=== PATIENT | female | born 1940 | race Caucasian/White ===

== ENCOUNTER 2017-04-10 14:17 | Emergency (ER) | payer MEDICARE, OTHER ==
[2017-04-10 14:56] VITALS: BP 107/63
--- NOTE | 2017-04-10 15:11 | UC ---
Throat Pain/Nasal Beau HPI - HPI Summary HPI Summary: Patient has had sore throat, MAGANA and nasal congestion for 2 weeks. - History of Current Complaint Chief Complaint: UCRespiratory Stated Complaint: SORE THROAT Time Seen by Provider: 04/10/17 14:52 Hx Obtained From: Patient ?: No Onset/Duration: Sudden Onset, Lasting Days Severity: Moderate Associated Signs & Symptoms: Positive: Dysphagia, Sinus Discomfort, Nasal Discharge - Epiglottits Risk Factors Epiglottis Risk Factors: Negative - Allergies/Home Medications Allergies/Adverse Reactions: Allergies Allergy/AdvReac Type Severity Reaction Status Date / Time No Known Allergies Allergy Verified 04/10/17 14:56 Home Medications: Home Medications Calcium 500 mg PO DAILY 04/10/17 [History Confirmed 04/10/17] Cholecalciferol [Vitamin D-3] 2,000 unit PO DAILY 04/10/17 [History Confirmed ] Citalopram Hydrobromide 40 mg PO DAILY 04/10/17 [History Confirmed 04/10/17] Cranberry-Vitamin C [Cranberry/Vitamin C 84-20 mg] 1 cap PO DAILY 04/10/17 [ History Confirmed 04/10/17] Gabapentin CAP(*) [Neurontin 100 mg CAP(*)] 100 mg PO DAILY 04/10/17 [History Confirmed 04/10/17] Levothyroxine TAB* [Synthroid TAB*] 50 mcg PO DAILY 04/10/17 [History Confirmed 04/10/17] Memantine HCl [Namenda Xr] 14 mg PO DAILY 04/10/17 [History Confirmed 04/10/17] Montelukast Sodium TAB* [Singulair TAB*] 10 mg PO DAILY 04/10/17 [History Confirmed 04/10/17] Omeprazole CAP* [Prilosec CAP* 20 MG] 20 mg PO BID 04/10/17 [History Confirmed 04/10/17] Simvastatin TAB(NF) [Zocor(NF)] 20 mg PO 1700 04/10/17 [History Confirmed ] Tizanidine HCl 2 mg PO DAILY 04/10/17 [History Confirmed 04/10/17] PMH/Surg Hx/FS Hx/Imm Hx Previously Healthy: Yes - Surgical History Surgical History: None - Family History Known Family History: Negative: Cardiac Disease, Hypertension - Social History Alcohol Use: None Substance Use Type: None Smoking Status (MU): Never Smoked Tobacco Review of Systems Constitutional: Negative Skin: Negative Eyes: Negative ENT: Sore Throat, Ear Ache, Nasal Discharge, Sinus Congestion Respiratory: Negative Cardiovascular: Negative Gastrointestinal: Negative Genitourinary: Negative Motor: Negative Neurovascular: Negative Musculoskeletal: Negative Neurological: Negative Psychological: Negative All Other Systems Reviewed And Are Negative: Yes Physical Exam Triage Information Reviewed: Yes Appearance: Well-Appearing, Well-Nourished, Pain Distress Vital Signs: Initial Vital Signs Temp 99.1 F 04/10/17 14:48 Pulse 79 04/10/17 14:48 Resp 16 04/10/17 14:48 BP 107/63 04/10/17 14:48 Pulse Ox 100 04/10/17 14:48 Vital Signs Reviewed: Yes Eye Exam: Normal Eyes: Positive: Conjunctiva Clear ENT Exam: Normal ENT: Positive: Hearing grossly normal, Pharyngeal erythema, Nasal congestion, TMs normal, Other: - PND Dental Exam: Normal Neck exam: Normal Neck: Positive: Supple, Nontender, No Lymphadenopathy Respiratory Exam: Normal Respiratory: Positive: Chest non-tender, Lungs clear, Normal breath sounds Cardiovascular Exam: Normal Cardiovascular: Positive: RRR, No Murmur, Pulses Normal Abdominal Exam: Normal Bowel Sounds: Positive: Present Musculoskeletal Exam: Normal Musculoskeletal: Positive: Strength Intact, ROM Intact, No Edema Neurological Exam: Normal Neurological: Positive: Alert, Muscle Tone Normal Psychological Exam: Normal Skin Exam: Normal Throat Pain/Nasal Course/Dx - Course Course Of Treatment: hx obtained, exam performed, meds reviewed, treated for sinusitis - Differential Dx/Diagnosis Differential Diagnosis/HQI/PQRI: Otitis Media, Pharyngitis, Sinusitis Provider Diagnoses: sinusitis Discharge - Discharge Plan Condition: Stable Disposition: HOME Prescriptions: Amoxicillin/Clavulanate TAB* [Augmentin TAB 875*] 875 mg PO BID #20 tab Patient Education Materials: Sinusitis (ED) Additional Instructions: 1. increase your fluid intake 2. Take the medication as prescribed.
== END 2017-04-10 15:26 | disposition home or self-care (01) ==
LOC: UCCORT 14:17
DX: J02.9 Acute pharyngitis, unspecified (principal)
CPT/HCPCS: 99202; G0463

== ENCOUNTER 2020-01-20 03:31 | Emergency (ER) | payer MEDICARE, OTHER ==
[2020-01-20 04:40] LABS: ABS Eosinophils 0.2 10^3/ul (0-0.6); ABS Lymphocytes 2.3 10^3/ul (1.0-4.8); ABS Monocytes 0.4 10^3/ul (0-0.8); ABS Neutrophils 2.9 10^3/ul (1.5-7.7); Hematocrit 37 % (35-47); Hemoglobin 12.7 g/dL (12.0-16.0); Lymphocyte % 39.2 %; Mean Corpuscular HGB Conc 35 g/dL (31-36); Mean Corpuscular Hemoglobin 30 pg (27-31); Mean Corpuscular Volume 87 fL (80-97); Platelet Count 257 10^3/uL (150-450); Red Cell Distribution Width 14 % (10-15); White Blood Count 5.9 10^3/uL (3.5-10.8)
--- NOTE | 2020-01-20 04:40 | ED ---
HPI Cardiac - HPI Summary HPI Summary: Patient is an 79 y/o F presenting to [facility] with complaints of cough, SOB, and chest pain. She states that she has had a cough for the past 3-4 weeks. This cough has not worsened nor improved in severity. This evening, the patient had difficulty sleeping secondary to her cough. She additionally experienced onset of chest pain and SOB while lying down. Fevers, N/V/D and decreased PO intake are denied. PMHx of HLD, GERD, thyroid disease, and asthma noted. Patient is on Eliquis and Neurontin. Home medications and allergies are reviewed. - History of Current Complaint Stated Complaint: SOB/COUGH PER PT Hx Obtained From: Patient Onset/Duration: Started Weeks Ago Timing: Lasting Weeks Current Severity: Moderate Pain Intensity: 6 Pain Scale Used: 0-10 Numeric Associated Signs and Symptoms: Positive: Chest Pain, Shortness of Breath, Cough , Other: - negative - diarrhea, decreased PO intake. Negative: Fever, Diaphoresis, Vomiting - Allergy/Home Medications Allergies/Adverse Reactions: Allergies Allergy/AdvReac Type Severity Reaction Status Date / Time No Known Allergies Allergy Verified 01/20/20 04:10 Home Medications: Home Medications Calcium 500 mg PO DAILY 04/10/17 [History Confirmed 01/20/20] Cholecalciferol (Vitamin D3) [Vitamin D-3] 2,000 unit PO DAILY 04/10/17 [ History Confirmed 01/20/20] Gabapentin CAP(*) [Neurontin 100 mg CAP(*)] 100 mg PO DAILY 04/10/17 [History Confirmed 01/20/20] Levothyroxine TAB* [Synthroid TAB*] 50 mcg PO DAILY 04/10/17 [History Confirmed 01/20/20] Montelukast Sodium TAB* [Singulair TAB*] 10 mg PO DAILY 04/10/17 [History Confirmed 01/20/20] Omeprazole CAP (NF) [Prilosec CAP* 20 MG] 20 mg PO BID 04/10/17 [History Confirmed 01/20/20] Simvastatin TAB(NF) [Zocor(NF)] 20 mg PO 1700 04/10/17 [History Confirmed ] Apixaban* [Eliquis*] 5 mg PO BID 01/20/20 [History Confirmed 01/20/20] PMH/Surg Hx/FS Hx/Imm Hx Endocrine/Hematology History: Reports: Hx Thyroid Disease Cardiovascular History: Reports: Hx Hypercholesterolemia Respiratory History: Reports: Hx Asthma GI History: Reports: Hx Gastroesophageal Reflux Disease Infectious Disease History: No Infectious Disease History: Denies: Traveled Outside the [place] in Last 30 Days - Family History Known Family History: Negative: Cardiac Disease, Hypertension - Social History Alcohol Use: None Substance Use Type: Reports: None Hx Tobacco Use: No Smoking Status (MU): Never Smoked Tobacco - Additional Comments History Additional Comments: PMHx of HLD, GERD, thyroid disease, and asthma Review of Systems - ROS Summary Review of Systems Summary: Home Medications Medication Instructions Recorded Confirmed Type Calcium 500 mg PO DAILY 04/10/17 04/10/17 History Cholecalciferol (Vitamin D3) 2,000 unit PO DAILY 04/10/17 04/10/17 History [Vitamin D-3] Gabapentin CAP(*) [Neurontin 100 100 mg PO DAILY 04/10/17 04/10/17 History mg CAP(*)] Levothyroxine TAB* [Synthroid TAB*] 50 mcg PO DAILY 04/10/17 04/10/17 History Montelukast Sodium TAB* [Singulair 10 mg PO DAILY 04/10/17 04/10/17 History TAB*] Omeprazole CAP (NF) [Prilosec CAP* 20 mg PO BID 04/10/17 04/10/17 History 20 MG] Simvastatin TAB(NF) [Zocor(NF)] 20 mg PO 1700 04/10/17 04/10/17 History Apixaban* [Eliquis*] 5 mg PO BID 01/20/20 01/20/20 History Negative: Fever Positive: Chest Pain Positive: Shortness Of Breath, Cough Gastrointestinal: Other - negative - decreased PO intake Negative: Vomiting, Diarrhea, Nausea All Other Systems Reviewed And Are Negative: Yes Physical Exam - Summary Physical Exam Summary: General: Well-developed, Thin, Elderly Female. No acute distress. HEENT: Normocephalic, Atraumatic. Eyes: Conjuctiva normal, PERRL. Oropharynx: Clear, mucous membranes moist, (-) exudates. Neck: Soft, FROM, (-) lymphadenopathy, (-) thyromegaly, (-) JVD. Cardiovascular: Normal sinus rhythm, (-) murmur. Lungs: Clear to auscultation bilaterally (-) wheezes, (-) rales, (-) rhonchi. Abdomen: Soft, non-tender, non-distended, (-) organomegaly, normal bowel sounds. Back: (-) CVA tenderness Extremities: No edema. Skin: Warm, dry, (-) rash. Neuro: Alert and oriented x3, moves all extremities equally. No ataxia. No gait disturbance. No sensory deficit. Normal strength, normal sensation. Psychiatric: Mood normal, affect normal. Triage Information Reviewed: Yes Vital Signs On Initial Exam: Initial Vitals Temp Pulse Resp BP Pulse Ox 97.3 F 70 19 143/84 95 01/20/20 03:45 01/20/20 03:45 01/20/20 03:45 01/20/20 03:45 01/20/20 03:45 Vital Signs Reviewed: Yes Procedures - Sedation Patient Received Moderate/Deep Sedation with Procedure: No Diagnostics - Vital Signs Vital Signs Temp Pulse Resp BP Pulse Ox 01/20/20 03:45 97.3 F 70 19 143/84 95 - Laboratory Result Diagrams: 01/20/20 04:23 01/20/20 04:23 Lab Statement: Any lab studies that have been ordered have been reviewed, and results considered in the medical decision making process. - Radiology CXR Radiology Interpretation Completed By: ED Physician Summary of Radiographic Findings: No pleural effusion, no infiltrate, no acute process. Pending official report. - EKG 0355 Cardiac Rate: NL - RATE OF 63 BPM EKG Rhythm: Sinus Rhythm Summary of EKG Findings: EKG showed sinus rhythm with rate of 63 BPM, no STEMI. ED physician has reviewed and interpreted this EKG. Disposition - Course Course Of Treatment: 79-year-old female presents from home with cough. She also says she has intermittent chest pains andshortness of breath.no fevers. No nausea vomiting or diarrhea. She states her symptoms have been going on for 2 or 3 or 4 weeks now. She states tonight she just couldn't sleep and became concerned with everything was going on. patient is somewhat confused about her past medical history and medications. She has not been taking anything for her cough. Patient is in no apparent distress.afebrile. Normal vitals. Lungs are clear. No significant abnormalities on physical exam. Workup demonstrates normal white count. Negative troponin. Negative lactic acid. Patient is discharged home with viral syndrome. Advised [id number] medications as needed for cough. Follow up with PCP. Follow-up sooner for any worsening symptoms. - Diagnoses Provider Diagnoses: Viral syndrome Discharge ED - Sign-Out/Discharge Documenting (check all that apply): Patient Departure - discharge - Discharge Plan Condition: Stable Disposition: HOME Patient Education Materials: Viral Syndrome (ED) Forms: COVID-19 Tested & Isolation Referrals: Wilner Medellin MD [Primary Care Provider] - 3 Days Additional Instructions: PLEASE RETURN TO ED FOR ANY NEW OR WORSENING SYMPTOMS. PLEASE FOLLOWUP WITH YOUR PRIMARY CARE PHYSICIAN WITHIN THREE DAYS. - Billing Disposition and Condition Condition: STABLE Disposition: Home - Attestation Statements Document Initiated by [email or web address]: Yes Documenting Scribe: MIRIAN HELLER Provider For Whom Lesia is Documenting (Include Credential): ROCKY PAGAN MD Scribe Attestation: MIRIAN Hdz, scribed for ROCKY PAGAN MD on 01/20/20 at 0626. Scribe Documentation Reviewed: Yes Provider Attestation: The documentation as recorded by the MIRIAN varner accurately reflects the service I personally performed and the decisions made by me, ROCKY PAGAN MD Status of Scribe Document: Viewed
[2020-01-20 04:55] LABS: Albumin/Globulin Ratio 1.5 (1-3); Calcium 9.6 mg/dL (8.6-10.3); EGFR African American 64.6 (>60); EGFR Non-African American 53.3 (>60); Globulin 2.7 g/dL (2-4); Potassium 3.7 mmol/L (3.5-5.0); Total Bilirubin 0.4 mg/dL (0.2-1.0); Total Protein 6.7 g/dL (6.4-8.9)
[2020-01-20] MEDS ORDERED: Ibuprofen TAB* 400 MG PO ONE (06:34)
[2020-01-20 06:42] VITALS: BP 120/69
== END 2020-01-20 06:41 | disposition home or self-care (01) ==
LOC: ED 03:31
DX: B34.9 Viral infection, unspecified (principal); R07.9 Chest pain, unspecified; R06.02 Shortness of breath; R05 Cough; E78.5 Hyperlipidemia, unspecified; K21.9 Gastro-esophageal reflux disease without esophagitis; E03.9 Hypothyroidism, unspecified; Z79.01 Long term (current) use of anticoagulants; Z79.899 Other long term (current) drug therapy; Z79.890 Hormone replacement therapy; E78.00 Pure hypercholesterolemia, unspecified; Z20.828 Contact with and (suspected) exposure to other viral communicable diseases
CPT/HCPCS: 36415; 71045; 80053; 83605; 84484; 85025; 87040; 87635; 93005; 99284; A9270-GY; G2023